=== PATIENT | male | born 1990 | race Caucasian/White ===

== ENCOUNTER 2023-11-15 03:54 | Emergency (ER) | payer OTHER ==
[~2023-11-15] VITALS: Ht 188 cm; Wt 104.3 kg
[2023-11-15] MEDS ORDERED: ESCI10 PO (04:17)
[2023-11-15] MEDS ORDERED: OMEP20ER PO ×2 (04:18→06:19)
[2023-11-15] MEDS ORDERED: Bupropion HCl100 MG PO (04:18)
[2023-11-15 04:54] LABS: Source, Urine Clean Catch
[2023-11-15 04:59] LABS: BASOPHILS ABSOLUTE AUTO 0.06 K/mm3 (0.00-0.23); BASOPHILS PERCENT AUTO 1 % (0-2); EOSINOPHILS ABSOLUTE AUTO 0.22 K/mm3 (0.00-0.68); EOSINOPHILS PERCENT AUTO 3 % (0-6); Hematocrit 38.4 % (37.0-53.0); Hemoglobin 11.6 g/dL (13.5-17.5); IMMATURE GRAN ABSOLUTE AUTO 0.07 K/mm3 (0.00-0.10); IMMATURE GRAN PERCENT AUTO 1 % (0-1); LYMPHOCYTES ABSOLUTE AUTO 2.51 K/mm3 (0.84-5.20); LYMPHOCYTES PERCENT AUTO 30 % (21-46); MONOCYTES ABSOLUTE AUTO 0.67 K/mm3 (0.16-1.47); MONOCYTES PERCENT AUTO 8 % (4-13); Mean Corpuscular HGB 20.3 pg (26.0-34.0); Mean Corpuscular HGB Conc 30.2 g/dL (31.5-36.5); Mean Corpuscular Volume 67 fL (80-100); Mean Platelet Volume 9.4 fL (9.1-12.4); NEUTROPHILS ABSOLUTE AUTO 4.93 K/mm3 (1.96-9.15); NEUTROPHILS PERCENT AUTO 58 % (41-73); Platelet Count 318 K/mm3 (150-400); RDW Standard Deviation 37.3 fL (35.1-46.3); Red Blood Cell Count 5.71 M/mm3 (4.30-5.90); White Blood Cell Count 8.46 K/mm3 (4.00-11.30)
[2023-11-15 05:09] LABS: Appearance, Urine Clear (Clear); Bilirubin, Urine Neg (Neg); Blood, Urine Neg (Neg); Color, Urine Yellow (P-Yellow); Glucose Qualitative, Urine Neg (Neg); Ketones, Urine Neg (Neg); Leukocyte Esterase, Urine Neg (Neg); Nitrite, Urine Neg (Neg); Protein, Urine Neg (Neg); Urobilinogen, Urine NORM (Normal)
[2023-11-15] MEDS ORDERED: Mag Hydrox/AL Hydrox/Simeth 30 ML UDC PO ONE (05:20)
[2023-11-15 05:39] LABS: Albumin, Blood 4.1 g/dL (3.4-5.0); Bilirubin, Total 0.4 mg/dL (0.1-1.0); Bun/Creatinine Ratio 22.7 (12.0-20.0); Calcium, Blood 9.5 mg/dL (8.5-10.1); Creatinine, Blood 0.79 mg/dL (0.60-1.20); Globulin, Blood 4.1 g/dL (2.2-4.0); Percent Saturation 3.4 % (20.0-50.0); Potassium, Blood 4.5 mmol/L (3.5-5.5); Total Protein, Blood 8.2 g/dL (6.4-8.2)
[2023-11-15] MEDS ORDERED: LEXAPRO5 MG PO (06:19)
[2023-11-15] MEDS ORDERED: SUCR1 PO (06:19)
[2023-11-15] MEDS ORDERED: FERROUS GLUCON324 M2 PO (06:19)
== END 2023-11-15 06:29 | disposition home or self-care (01) ==
LOC: ER 03:54
PROVIDERS: Student in an Organized Health Care Education/Training Program
DX: K29.70 Gastritis, unspecified, without bleeding (principal); D50.9 Iron deficiency anemia, unspecified; K21.9 Gastro-esophageal reflux disease without esophagitis; Z79.899 Other long term (current) drug therapy
CPT/HCPCS: 80053; 81003; 83540; 83550; 83690; 85025; 99284; A9270

== ENCOUNTER 2024-05-12 16:41 | Emergency (ER) | payer SELFPAY ==
[~2024-05-12] VITALS: Ht 188 cm; Wt 104.3 kg
[~2024-05-12 16:41] MED LIST: Bupropion HCl100 MG PO; ESCI10 PO; FERROUS GLUCON324 M2 PO; LEXAPRO5 MG PO; OMEP20ER PO; SUCR1 PO
[2024-05-12] MEDS ORDERED: Ketorolac Tromethamine 15mg Vial IM ONE (17:20)
[2024-05-12] MEDS ORDERED: Lidocaine 4% 1 Patch TOP ONE (17:20)
[2024-05-12] MEDS ORDERED: Cyclobenzaprine HCl 10 MG Tab PO ONE (18:05)
[2024-05-12] MEDS ORDERED: CYCL10 PO (19:19)
[2024-05-12] MEDS ORDERED: LIDO700A20 TOP (19:19)
== END 2024-05-12 19:35 | disposition home or self-care (01) ==
LOC: ER 16:41
DX: S39.012A Strain of muscle, fascia and tendon of lower back, initial encounter (principal); X50.1XXA Overexertion from prolonged static or awkward postures, initial encounter; Z79.899 Other long term (current) drug therapy; K21.9 Gastro-esophageal reflux disease without esophagitis
CPT/HCPCS: 72100; 73502; 93005; 93010; 96372; 99284-25; A9270; J1885